=== PATIENT | female | born 2000 | race Caucasian/White ===

== ENCOUNTER → 2018-04-17 | Outpatient (CLI) | payer OTHER | END | disposition home or self-care (01) | LOC: C.PAPS 14:14 | PROVIDERS: ATTEND Obstetrics & Gynecology | DX: Z12.4 Encounter for screening for malignant neoplasm of cervix (principal) ==

== ENCOUNTER → 2018-04-17 | Outpatient (CLI) | payer OTHER ==
[2018-04-17 14:35] LABS: BASO % 0.1 %; BASO ABS # 0.01 K/uL (0-0.2); EOS % 1.2 %; EOS ABS # 0.09 K/uL (0-0.5); HEMATOCRIT 32.1 % (37-47); HEMOGLOBIN 10.8 g/dL (12.0-16.0); IG# 0.02 K/uL (0.00-0.02); LYMPH % 25.2 %; LYMPH ABS # 1.82 K/uL (1.2-3.4); MEAN CORPUSCULAR HEMOGLOBIN 28.3 pg (25-34); MEAN CORPUSCULAR HGB CONC 33.6 g/dl (32-36); MEAN PLATELET VOLUME 10.1 fL (7.4-10.4); MONO % 5.4 %; MONO ABS # 0.39 K/uL (0.11-0.59); NEUT % 67.8 %; NEUT ABS # 4.88 K/uL (1.4-6.5); PLATELET COUNT 231 K/uL (130-400); RED CELL DISTRIBUTION WIDTH CV 13.8 % (11.5-14.5); RED CELL DISTRIBUTION WIDTH SD 41.8 fL (36.4-46.3); WHITE BLOOD COUNT 7.21 K/uL (4.8-10.8)
== END | disposition home or self-care (01) ==
LOC: C.LAB1850 12:32
PROVIDERS: ATTEND Obstetrics & Gynecology
DX: Z34.82 Encounter for supervision of other normal pregnancy, second trimester (principal)

== ENCOUNTER 2018-10-07 21:33 | Inpatient (IN) ==
[2018-10-07] MEDS ORDERED: OXYTOCIN 30 UNITS/500 ML BAG IV PRN (21:57)
[2018-10-07] MEDS ORDERED: LACTATED RINGER'S 1,000 ML IV PRN (21:57)
[2018-10-07] MEDS ORDERED: LACTATED RINGER'S 1,000 ML IV SCH (22:00)
--- NOTE | 2018-10-07 22:05 | History & Physical Report ---
Date of Service October 07, 2018 Assessment & Plan (1) 40 weeks gestation of : fetus category one (2) Normal labor: admit, try to get epidural as patient requests. anticipate . fetus category one History of Present Illness Chief Complaint: leaking fluid and labor Primary Care Provider: NO PCP Patient is a 17yowf with iup at 40 3/7 who presents to labor and delivery c/o lof--several clear gushes and contractions. Looks very uncomfortable. +fm. complicated by +CT at nob with treatment and neg delano at 36 weeks. hx of two previous vaginal deliveries labs--O+/ab-/pap nl/ri/rprnr/hepb-/hiv-/Ct+/ GC-/ 16 week gtt nl/ qs neg/28 week gtt 135, nl 2 hr gtt/gbs neg Allergies Allergy/AdvReac Type Severity Reaction Status Date / Time carrot Allergy Unknown RASH Verified 03/30/18 21:37 Home Medications Home Medications Medication Instructions Recorded Confirmed Type ferrous sulfate [Iron (ferrous 10/05/18 History sulfate)] vit-iron fum-folic ac 1 tab PO DAILY 10/05/18 10/05/18 History [ Vitamin] Patient History Medical History Anxiety Depression Social History marital status: Single Feels Safe at Home: Yes Smoking Status: Never smoker Do You Dip or Chew Tobacco: No Second Hand Exposure: Yes Tobacco Cessation Education Requested by Patient: No Hx Alcohol Use: No Hx Substance Use: No Preferred Language: Malay OB History g1--09/13, , 7#, no issues g2--05/16, , 6#, no issues INFECTION PREVENTION SPECIALIST History no history of abnl pap, nstd. Review of Systems All systems reviewed & are unremarkable except as noted in HPI & below Physical Exam 2 Vital Signs (Past 24 Hours): Last Vital Signs Temp 36.8 C 10/07/18 21:40 Pulse 88 10/07/18 21:45 Resp 18 10/07/18 21:40 BP 140/78 10/07/18 21:45 Constitutional: WD/WN, vitals as above Gastrointestinal (Abdomen): soft, gravid, nt Genitourinary: cx--6-7/100/-2, bulging bag ceph toco--q1min efm--130s wtih mod variability, accels present, no decels
[2018-10-07] MEDS ORDERED: BUPIVACAINE 0.25% 30 ML VIAL ONE (22:13)
[2018-10-07] MEDS ORDERED: ePHEDrine sulfate 50 MG/ML AMP ONE (22:13)
[2018-10-07] MEDS ORDERED: fentaNYL 2MCG/ML ROPIV 1.25MG/ML 100 ML BAG EPI ONE (22:14)
[2018-10-07] MEDS ORDERED: fentaNYL citrate 100 MCG/2 ML VIAL ONE (22:14)
[2018-10-07 22:16] LABS: Hematocrit (blood only) 31.8 % (37-47); Mean Platelet Volume 9.8 fL (7.4-10.4); Platelet Count 211 K/uL (130-400); RDW Coefficient of Variation 15.7 % (11.5-14.5); Red Blood Count 4.24 M/uL (4.2-5.4); White Blood Count 11.06 K/uL (4.8-10.8)
--- NOTE | 2018-10-07 22:16 | Anesthesiology Consultation ---
Date of Service October 07, 2018 Assessment & Plan (1) Encounter for pre-operative examination: Chart Review Chart Review: Patient NOT seen in Pre Admission Testing and Acceptable Risk for Labor Epidural Consults Requested none ASA ASA2 Proposed Anesthesia Anesthesia Type: Labor Epidural Risk / Benefits Reviewed With: PT / POA / Parent / Guardian, Accepts Plan and Informed Consent Obtained NPO Date Last Intake of Fluids: 10/07/18 Time Last Intake of Fluids: 22:15 Date Last Intake of Solids: 10/07/18 Time Last Intake of Solids: 09:00 History Height/Weight Height: 5 ft 4 in Weight: 67.585 kg Allergies Allergy/AdvReac Type Severity Reaction Status Date / Time carrot Allergy Unknown RASH Verified 03/30/18 21:37 Medications Home Medications Medication Instructions Recorded Confirmed Last Taken ferrous sulfate [Iron (ferrous 10/05/18 Unknown sulfate)] vit-iron fum-folic ac 1 tab PO DAILY 10/05/18 10/05/18 Unknown [ Vitamin] Past Medical History Medical History Anxiety Depression Past Anesthesia History No Family Hx of Anesthesia Complications Motion Sickness Screening History of Motion Sickness: No Social History Smoking Status: Never smoker Do You Dip or Chew Tobacco: No Hx Alcohol Use: No Hx Substance Use: No substance use type: does not use Exercise / Class Metabolic Activity II 4-5 Yardwork/Stairs/Walk up hill Negative for chest pain or shortness of breath. Patient denies active symptoms of GERD. Physical Exam Vital Signs Last Vital Signs Temp 36.8 C 10/07/18 21:40 Pulse 88 10/07/18 21:45 Resp 18 10/07/18 21:40 BP 140/78 10/07/18 21:45 Constitutional not obese ENMT Mouth: no TMJ abnormality and oral opening not small Thyromental Distance: > or= 3.5 Finger Breadths Mallampati Class: II Neck normal visual inspection; neck extension not limited Respiratory normal respiratory effort Auscultation: lungs clear to auscultation bilaterally Cardiovascular Rate/Rhythm: regular rate and regular rhythm Heart Sounds: no murmur Psychiatric A+Ox3, euthymic affect Orientation: alert and oriented x 3
[2018-10-07 22:17] LABS: Mean Corpuscular Hgb Conc 31.4 g/dL (32-36)
[2018-10-07] MEDS ORDERED: OXYTOCIN 30 UNITS/500ML NSS ONE (22:23)
--- NOTE | 2018-10-07 22:49 | Procedure Note ---
Procedure Note Date of Service October 07, [address] epidural for patient who had attempted to push, but was now requesting epidural placement. Consent obtained. Patient placed in lateral position with left side down. Site prepped with betadine and draped. L3 interspace palpated and 3 cc of 1% lidocaine infiltrated at planned insertion site. Tuohey inserted and advanced with KAROLINA syringe filled with saline. Tuohey inserted to about 3cm before patient began experiencing intense urge to push with some degree of involuntary pushing. Decision made to abort procedure and tuohey removed. Patient placed supine and shortly after delivered healthy female . Anupama Hernandez MD, PhD Anesthesiology
[2018-10-08] MEDS ORDERED: HYDROCORTISONE ACETATE 25 MG SUPP PR PRN (01:35)
[2018-10-08] MEDS ORDERED: DIPHTHERIA/TETANUS/PERTUSSIS 0.5 ML SYR/VIAL IM ONE (01:35)
[2018-10-08] MEDS ORDERED: ACETAMINOPHEN 325 MG TAB PO PRN (01:35)
[2018-10-08] MEDS ORDERED: BENZOCAINE 20% AER SPR 82.5 GM CAN EXT PRN (01:35)
[2018-10-08] MEDS ORDERED: OXYTOCIN 30 UNITS/500 ML BAG IV PRN (01:35)
[2018-10-08] MEDS ORDERED: IBUPROFEN 600 MG TAB PO PRN (01:35)
[2018-10-08] MEDS ORDERED: SUPERCREAM 0.870% 15 GM JAR EXT PRN (01:35)
[2018-10-08] MEDS ORDERED: OXYCODONE/ACETAMINOPHEN 5mg/325mg TAB PO PRN (01:35)
[2018-10-08] MEDS ORDERED: IBUPROFEN 600 MG TAB PO ONE (01:43)
--- NOTE | 2018-10-08 06:21 | Delivery Summary ---
DATE OF OPERATION: 10/07/2018 PREOPERATIVE DIAGNOSES: 1. Intrauterine at 40 plus weeks. 2. Active labor. POSTOPERATIVE DIAGNOSES: Same. PROCEDURES: 1. Normal spontaneous vaginal delivery. 2. Small first-degree perineal laceration with repair. SURGEON: Alis Monte MD MANAGER HUMAN RESOURCES: No perioperative assistant. ANESTHESIA: Infiltration of lidocaine to the perineum. ESTIMATED BLOOD LOSS: 200 mL. DESCRIPTION OF PROCEDURE: The patient presented to Labor and Delivery in active labor. She was 7-8 cm with a bulging bag. Patient decided that she just wanted to proceed with amniotomy and delivery, so that was done for clear fluid. The fetus settled against the cervix and was 8 cm dilated for 3 or 4 contractions. So we tried to see if we could get an epidural placed. Unfortunately during the course of the epidural, the patient noted the need to push. She was checked and found to be +2 station and pushed over 1 contraction to deliver a viable female infant in MARY presentation. The nose and mouth were bulb suctioned. The rest of the was then delivered without difficulty. The infant was placed on the maternal abdomen for drying and attention where the cord was clamped and cut. Cord blood and segment were obtained. Placenta was delivered spontaneously intact with a 3-vessel cord. Cervix, sulci, and rectum were examined and found to be intact. A small perineal first-degree laceration was repaired with a konwzv-kr-qkzco suture of 0 Vicryl after infiltrating with 1% lidocaine without epi. Hemostasis was obtained with dilute Pitocin and IM Pitocin and fundal massage. Estimated blood loss 200 mL. Apgars 8 and 9. Mother and baby doing well at the end of the delivery. I attest to the content of the Intraoperative Record and any orders documented therein. Any exception s are noted below.
[2018-10-08 08:00] LABS: Hematocrit (blood only) 27.5 % (37-47); Hemoglobin 8.7 g/dL (12.0-16.0); Mean Corpuscular Hgb Conc 31.6 g/dL (32-36); Mean Corpuscular Volume 75.3 fL (80-100); Mean Platelet Volume 9.9 fL (7.4-10.4); Platelet Count 174 K/uL (130-400); RDW Coefficient of Variation 15.6 % (11.5-14.5); RDW Standard Deviation 43.2 fL (36.4-46.3); Red Blood Count 3.65 M/uL (4.2-5.4); White Blood Count 13.32 K/uL (4.8-10.8)
--- NOTE | 2018-10-08 08:25 | Obstetrical Progress Note ---
Date of Service <Emory Telles DO - Last Filed: 10/08/18 08:25> October 08, 2018 Assessment & Plan <Emory Telles DO - Last Filed: 10/08/18 08:25> (1) Spontaneous vaginal delivery: 17 y/o , O+, Ab-, GBS-, @ 40 weeks - continue routine post- care - PPD #1 Day #:: 1 Subjective <Emory Telles DO - Last Filed: 10/08/18 08:25> Ambulation: ambulating normally Voiding: no voiding problems Passing Gas:: Yes Diet Tolerance:: regular diet Lochia:: Small Feeding Type:: bottle feeding Current Pain Level(1-10): 0 Rafia states she is doing well this morning. No fevers, chills, chest pain, shortness of breath, nausea, vomiting. Physical Exam <Emory Telles DO - Last Filed: 10/08/18 08:25> Vital Signs (Past 24 Hours) Last Vital Signs Temp 36.8 C 10/08/18 03:25 Pulse 85 10/08/18 03:25 Resp 16 10/08/18 03:25 BP 111/57 L 10/08/18 03:25 Pulse Ox 97 10/08/18 03:25 Constitutional WD/WN, vitals as above Respiratory normal respiratory effort, lungs clear to auscultation Cardiovascular RRR, no murmur, no edema Gastrointestinal (Abdomen) Percussion/Palpation: abdomen soft; abdomen nontender fundus is firm, non-tender, 2cm below umbilicus Neurologic moves all extremities and awake Psychiatric A+Ox3, euthymic affect Results & Data <DO Abdulaziz Madrid Last Filed: 10/08/18 08:25> Laboratory Results Laboratory Results - last 24 hr 10/07/18 10/08/18 22:07 07:29 WBC 11.06 H 13.32 H RBC 4.24 3.65 L Hgb 10.0 L 8.7 L Hct 31.8 L 27.5 L MCV 75.0 L 75.3 L MCH 23.6 L 23.8 L MCHC 31.4 L 31.6 L RDW Std Deviation 43.0 43.2 RDW Coeff of Yaniv 15.7 H 15.6 H Plt Count 211 174 MPV 9.8 9.9 <Alis Monte MD, FACOG - Last Filed: 10/08/18 08:30> Co-Signing Physician Notes Resident Physician Supervision Note: I interviewed and examined the patient. Discussed with Dr. Telles and agree with findings and plan as documented in the note. Any exceptions or clarifications are listed here: Doing well. Routine care. Documented By: Alis Monte MD, FACOG
[2018-10-08] MEDS: PRENATAL VITAMIN 1 TAB PO SCH (09:26)
[2018-10-08] MEDS: DOCUSATE SODIUM 100 MG CAP PO SCH ×2 (09:26→19:46)
--- NOTE | 2018-10-09 06:52 | Obstetrical Progress Note ---
Date of Service <Emory DO Elfego - Last Filed: 10/09/18 07:04> October 09, 2018 Assessment & Plan <Emory DO Elfego - Last Filed: 10/09/18 07:04> (1) Spontaneous vaginal delivery: 17 y/o , O+, Ab-, GBS-, @ 40 weeks - continue routine post- care until discharge home today - discharge instructions reviewed at bedside - PPD # Subjective <Emory Telles DO - Last Filed: 10/09/18 07:04> Ambulation: ambulating normally Voiding: no voiding problems Passing Gas:: Yes Diet Tolerance:: regular diet Lochia:: Small Feeding Type:: bottle feeding Current Pain Level(1-10): 0 Rafia is doing well this morning. No fever, chills, chest pain, shortness of breath, headache. Physical Exam <Emory Telles DO - Last Filed: 10/09/18 07:04> Vital Signs (Past 24 Hours) Last Vital Signs Temp 36.5 C 10/08/18 23:33 Pulse 73 10/08/18 23:33 Resp 16 10/08/18 23:33 BP 103/54 L 10/08/18 23:33 Pulse Ox 97 10/08/18 23:33 Constitutional WD/WN, vitals as above Respiratory normal respiratory effort, lungs clear to auscultation Cardiovascular RRR, no murmur, no edema Gastrointestinal (Abdomen) Percussion/Palpation: abdomen soft; abdomen nontender fundus is firm, non-tender, 3cm below umbilicus Neurologic moves all extremities and awake Psychiatric A+Ox3, euthymic affect Results & Data <DO Abdulaziz Madrid Last Filed: 10/09/18 07:04> Laboratory Results Laboratory Results - last 24 hr 10/08/18 07:29 WBC 13.32 H RBC 3.65 L Hgb 8.7 L Hct 27.5 L MCV 75.3 L MCH 23.8 L MCHC 31.6 L RDW Std Deviation 43.2 RDW Coeff of Yaniv 15.6 H Plt Count 174 MPV 9.9 Medications Administered Docusate Sodium (Colace) 100 mg PO BID LILLIAM Stop: 11/07/18 08:59 Last Admin: 10/08/18 19:46 Dose: 100 mg Admin: 10/08/18 09:26 Dose: 100 mg Ibuprofen (Motrin) 600 mg PO Q4H PRN PRN Reason: Pain/MATSON/Cramping/Fever Stop: 11/07/18 01:34 Last Admin: 10/08/18 15:54 Dose: 600 mg Prenat Multivit/Barrel Raiser Helper/Iron/Folic Ac ( Vitamin) 1 tab PO QAM LILLIAM Stop: 11/07/18 08:59 Last Admin: 10/08/18 09:26 Dose: 1 tab <Ingrid Salomon MD, FACOG - Last Filed: 10/09/18 08:37> Co-Signing Physician Notes Resident Physician Supervision Note: I interviewed and examined the patient. Discussed with Dr. Emory Telles and agree with findings and plan as documented in the note. Any exceptions or clarifications are listed here: [None] Documented By: Ingrid Salomon MD, FACOG
[2018-10-09] MEDS: DOCUSATE SODIUM 100 MG CAP PO SCH (08:19)
[2018-10-09] MEDS: PRENATAL VITAMIN 1 TAB PO SCH (08:19)
[2018-10-09 08:30] LABS: Hematocrit (blood only) 30.9 % (37-47); Hemoglobin 9.7 g/dL (12.0-16.0)
== END 2018-10-09 13:25 | disposition home or self-care (01) | DRG 807 ==
LOC: OPB 21:33 → 4S1 21:34 → 4N 10-08 02:00

== ENCOUNTER 2021-11-14 07:35 | Inpatient (IN) ==
[2021-11-14] MEDS ORDERED: OXYTOCIN 30 UNITS/500 ML BAG IV PRN ×3 (07:48→13:18)
[2021-11-14 08:16] LABS: Hematocrit (blood only) 29.5 % (37-47); Hemoglobin 8.8 g/dL (12.0-16.0); Mean Corpuscular Hemoglobin 22.6 pg (25-34); Mean Corpuscular Hgb Conc 29.8 g/dL (32-36); Mean Corpuscular Volume 75.6 fL (80-100); Mean Platelet Volume 9.7 fL (7.4-10.4); Platelet Count 201 K/uL (130-400); RDW Coefficient of Variation 16.6 % (11.5-14.5); RDW Standard Deviation 45.8 fL (36.4-46.3); White Blood Count 9.39 K/uL (4.8-10.8)
[2021-11-14] MEDS: LACTATED RINGER'S 1,000 ML IV PRN ×2 (08:20→11:30)
--- NOTE | 2021-11-14 09:32 | History & Physical Report ---
Date of Service November 14, 2021 Assessment & Plan (1) Encounter for induction of labor: (2) Severe anemia: Plan: admit, iv, labs. start pit. will arom, epidural on demand. fhts categ 1. Admission and Anticipated Discharge Date Admission Date: November 14, 2021 History of Present Illness Chief Complaint: planned induction Primary Care Provider: MARYAM PCP 20yo at 40+wks lacho presents to L&D for planned induction for postdates. She had vang placed yesterday for cervical ripening. Back today and balloon has not fallen out. She denies ctx, rom. Some vb after vang yesterday. +FM. PNC 1. severe anemia--had hematology consult in oct 01, ? if did the iv iron and sq vit b12 PNL rh pos, ri, gbs neg OBH: x 3 GYNH: nl paps no stds Allergies Allergy/AdvReac Type Severity Reaction Status Date / Time carrot Allergy Severe Throat Verified 11/13/21 19:10 sweeling Home Medications Medication Instructions Recorded Confirmed Type acetaminophen 500 mg tablet 1,000 mg PO Q6H PRN 05/21/21 11/14/21 History (Tylenol Extra Strength) ferrous sulfate 325 mg (65 mg 325 mg PO DAILY 08/12/21 11/14/21 History iron) tablet (iron) prenat.vits,felicia,[id number] 1 tab PO DAILY 08/12/21 11/14/21 History Patient History Medical History (Updated 11/14/21 @ 09:59 by Alejandra Chen MD, FACOG) Anxiety COVID-19 Positive test- 10/20/21 Depression labor in third trimester Scabies 06/2021-treated Surgical History No history of previous surgery Family History Other No known health problems Social History Smoking Status: Never smoker Tobacco Type: Cigarettes Second Hand Exposure: No; Hx Alcohol Use: No Hx Substance Use: No Preferred Language: Burundian Communication Ability: Effective Flat Surfacer Required: No Beliefs That Will Affect Care: None marital status: Single marital status details: Med (25) [phone] Current Living Situation: Family Current Living Situation Comment: lives with Mother, step dad, sister, neice, and pts children current occupational status: unemployed Feels Safe at Home: Yes Assistive Devices: Glasses Review of Systems as per Subjective / HPI Physical Exam Constitutional: WD/WN, vitals as above Respiratory: normal respiratory effort, lungs clear to auscultation Cardiovascular: Rate/Rhythm: regular rate and regular rhythm Gastrointestinal (Abdomen): soft gravid nt Musculoskeletal: no edema nontender calves Neurologic: grossly normal Psychiatric: A+Ox3, euthymic affect Genitourinary: OB Exam Abdomen: + vertex and + estimated weight (7-8#) Manual OB Exam: + cervical dilation 4 cm, + cervical effacement (75%) and + station -2 OB Exam Monitor Tracing: + external FHT monitor used, + external uterine monitor used (no regular ctx), + category I and + normal FHT variability vang balloon in vagina. deflated and removed. Results & Data ([facility]) Vital Signs (Past 12 Hours) Vital Signs Temp Pulse Resp BP 11/14/21 09:04 84 112/71 11/14/21 07:58 98.1 F 18 11/14/21 07:44 98 H 117/72 Code Status & VTE Plan VTE Prophylaxis Plan VTE Prophylaxis will be ordered: Yes Coding Level of Care Code None Diagnoses Encounter for induction of labor Z34.90 Severe anemia D64.9
--- NOTE | 2021-11-14 10:57 | Medical Student H&P ---
Date of Service November 14, 2021 Assessment & Plan (1) Encounter for induction of labor: (2) Severe anemia: Plan: Rafia is a 20F with IUP at 40 0/7 weeks based on first trimester ultrasound who presents to labor and delivery for induction of labor for postda darlyn. Admit. Will establish IV access. Start Pitocin 1 mU/min, +2mU/min q30min. Plan for AROM. Epidural on demand. Admission and Anticipated Discharge Date Admission Date: November 14, 2021 History of Present Illness Chief Complaint: Induction Primary Care Provider: NO PCP Rafia is a 20F with IUP at 40 0/7 weeks based on first trimester ultrasound who presents to labor and delivery for induction of labor for postdates. She had a vang placed yesterday for cervical ripening. She has felt movement. No contractions or leakage of fluid. She had a moderate amount of vaginal bleeding after the vang placement yesterday. She has severe anemia but was not able to get IV iron treatment. Labs GBS Neg 10/17/21 Blood Type O Positive 03/27/21 Antibody Screen NEGATIVE 03/27/21 Hemoglobin 12.5 g/dL (12.0-16.0) 03/27/21 Hematocrit 36.2 % (37-47) L 03/27/21 F Mean Corpuscular Volume 83.6 fL (80-100) 03/27/21 Platelet Count 264 K/uL (130-400) 03/27/21 Rubella IgG Antibody Immune (Immune) 03/27/21 Rapid Plasma Reagin Nonreactive (Nonreactive) 03/27/21 Hepatitis B Surface Antigen Neg (Neg) 03/27/21 HIV (1&2) Ab and P24 Ag, 4th Gener Neg (Neg) 03/27/21 Glucose 1 Hour 50 gm Load 135 mg/dl (70-130) H 07/10/18 Chlamydia trachomatis RNA NOT DETECTED (NOT DETECTED) 03/27/21 Neisseria gonorrhoeae RNA NOT DETECTED (NOT DETECTED) 03/27/21 Thyroid Stimulating Hormone (TSH) 1.920 uIu/ml (0.300-4.500) 03/30/18 Alpha Fetoprotein Triple Screen SEE NOTE 04/17/18 Alpha Fetoprotein 28.8 NG/ML 04/17/18 Allergies Allergy/AdvReac Type Severity Reaction Status Date / Time carrot Allergy Severe Throat Verified 11/13/21 19:10 sweeling Home Medications Medication Instructions Recorded Confirmed Type acetaminophen 500 mg tablet 1,000 mg PO Q6H PRN 05/21/21 11/14/21 History (Tylenol Extra Strength) ferrous sulfate 325 mg (65 mg 325 mg PO DAILY 08/12/21 11/14/21 History iron) tablet (iron) prenat.vits,felicia,[id number] 1 tab PO DAILY 08/12/21 11/14/21 History Patient History Medical History Anxiety COVID-19 Positive test- 10/20/21 Depression labor in third trimester Scabies 06/2021-treated Surgical History No history of previous surgery Family History (Updated 11/14/21 @ 11:17 by Zeinab Rivera) Grandmother (Maternal) Colorectal cancer, Onset Age: 33 Social History Smoking Status: Never smoker Tobacco Type: Cigarettes Second Hand Exposure: No; Hx Alcohol Use: No Hx Substance Use: No Preferred Language: Swedish Communication Ability: Effective Microbiology Supervisor Required: No Beliefs That Will Affect Care: None marital status: Single marital status details: Med (25) [phone] Current Living Situation: Family Current Living Situation Comment: lives with Mother, step dad, sister, neice, and pts children current occupational status: unemployed Feels Safe at Home: Yes Assistive Devices: Glasses OB History Del. Date GA wks Lbr Lgth wt Sex Type del Anes Place Del Prov ? Comment 09/19/15 41 6lb 0oz. M Epid ural [facility] No 05/24/17 38 7lb 0oz. F Epid ural Other [place] No 10/07/17 8lb 8oz. F None [facility] Dr Lali Monte No MAXILLOFACIAL PATHOLOGY History LMP: 01/31/21 Menstrual History Flow: heavy Menstrual regularity: regular Monthly: Yes Age at menarche: 13 On control pills at conception: No History of Chlamydia in 2018. No history of abnormal pap smear, uncertain of the date of her last. No MAXILLOFACIAL PATHOLOGY surgeries Review of Systems no fever and no chills no dyspnea no chest pain no dysuria, no urinary frequency and no urinary urgency no dizziness, no syncope and no headache(s) no easy bleeding Physical Exam Constitutional: WD/WN, vitals as above Respiratory: normal respiratory effort, lungs clear to auscultation Cardiovascular: RRR, no murmur, no edema Gastrointestinal (Abdomen): Percussion/Palpation: abdomen soft; abdomen nontender and no guarding Gravid Psychiatric: A+Ox3, euthymic affect Lymphatic: no cervical or axillary lymphadenopathy Monitoring External Monitor FHT Cat I. Results & Data ([facility]) Vital Signs (Past 12 Hours) Vital Signs Temp Pulse Resp BP 11/14/21 10:36 18 11/14/21 10:20 18 11/14/21 10:04 18 11/14/21 10:03 79 120/58 L 11/14/21 09:50 18 11/14/21 09:04 84 112/71 11/14/21 07:58 36.7 C 18 11/14/21 07:44 98 H 117/72 Laboratory Results 11/14/21 11/14/21 Range/Units 08:06 08:06 WBC 9.39 (4.8-10.8) K/uL RBC 3.90 L (4.2-5.4) M/uL Hgb 8.8 L (12.0-16.0) g/dL Hct 29.5 L (37-47) % MCV 75.6 L (80-100) fL MCH 22.6 L (25-34) pg MCHC 29.8 L (32-36) g/dL RDW Std Deviation 45.8 (36.4-46.3) fL RDW Coeff of Yaniv 16.6 H (11.5-14.5) % Plt Count 201 (130-400) K/uL MPV 9.7 (7.4-10.4) fL Blood Type O Positive Antibody Screen NEGATIVE Code Status & VTE Plan VTE Prophylaxis Plan VTE Prophylaxis will be ordered: Yes
[2021-11-14] MEDS ORDERED: ePHEDrine sulfate 50 MG/ML AMP ONE (11:03)
[2021-11-14] MEDS ORDERED: BUPIVACAINE 0.25% 30 ML VIAL ONE (11:03)
[2021-11-14] MEDS ORDERED: SODIUM CHLORIDE 0.9% INJ 10 ML VIAL ONE (11:03)
[2021-11-14] MEDS ORDERED: fentaNYL citrate 100 MCG/2 ML VIAL ONE (11:04)
[2021-11-14] MEDS ORDERED: fentaNYL 2MCG/ML ROPIVACAINE 1.25MG/ML 100 ML BAG EPI ONE (11:04)
[2021-11-14] MEDS ORDERED: NALOXONE HCL 0.4 MG/1 ML VIAL/CARP IV PRN (11:14)
[2021-11-14] MEDS ORDERED: NALOXONE HCL 1 MG in SODIUM CHLORIDE 0.9% 1000ML 1,000 ML IV PRN (11:14)
[2021-11-14] MEDS ORDERED: ePHEDrine sulfate 50 MG/ML AMP IV PRN (11:14)
[2021-11-14] MEDS ORDERED: ONDANSETRON INJ 2 MG/ML 2 ML VIAL IV PRN (11:14)
[2021-11-14] MEDS ORDERED: diphenhydrAMINE 50 MG/ML VIAL IV PRN (11:14)
[2021-11-14] MEDS ORDERED: NALBUPHINE HCL INJ 10 MG/ML AMP IV PRN (11:14)
[2021-11-14] MEDS ORDERED: fentaNYL 2MCG/ML ROPIVACAINE 1.25MG/ML 100 ML BAG EPI PRN (11:14)
--- NOTE | 2021-11-14 11:18 | Anesthesiology Consultation ---
Date of Service November 14, 2021 Assessment & Plan (1) Encounter for pre-operative examination: Chart Review Chart Review: Acceptable Risk for Labor Epidural Consults Requested none ASA ASA2 Proposed Anesthesia Anesthesia Type: Labor Epidural Risk / Benefits Reviewed With: PT / POA / Parent / Guardian, Accepts Plan and Informed Consent Obtained History Height/Weight Height: 5 ft 4 in Weight: 66.678 kg Allergies Allergy/AdvReac Type Severity Reaction Status Date / Time carrot Allergy Severe Throat Verified 11/13/21 19:10 sweeling Medications Home Medications Medication Instructions Recorded Confirmed Last Taken acetaminophen 500 mg tablet 1,000 mg PO Q6H PRN 05/21/21 11/14/21 08/12/21 (Tylenol Extra Strength) ferrous sulfate 325 mg (65 mg 325 mg PO DAILY 08/12/21 11/14/21 11/13/21 19:00 iron) tablet (iron) prenat.vits,felicia,oeh-qwxq-[id number] 1 tab PO DAILY 08/12/21 11/14/21 11/13/21 08:00 Active Medications Generic Name Dose Route Start Last Admin Trade Name Freq PRN Reason Stop Dose Admin Oxytocin 30 units in 500 mls @ 7 mls/hr 11/14/21 07:48 11/14/21 10:36 Pitocin IV 11/16/21 07:47 0.42 units/hr .Q24H PRN 7 mls/hr Labor Induction/Augmentation Titration Protocol 0.42 UNITS/HR Lactated Ringer's 1,000 mls @ 125 mls/hr 11/14/21 07:48 11/14/21 11:00 Lr IV 11/16/21 07:47 999 mls/hr .Q8H PRN Infusion L&D Protocol Protocol Past Medical History Medical History Anxiety COVID-19 Positive test- 10/20/21 Depression labor in third trimester Scabies 06/2021-treated Exercise / Class Metabolic Activity II 4-5 Yardwork/Stairs/Walk up hill Past Family History Family History Other No known health problems Past Surgical History Surgical History No history of previous surgery Past Anesthesia History No Hx of Anesthesia Complications and No Family Hx of Anesthesia Complications History of PONV No Hx of PONV and No Hx of Motion Sickness Social History Smoking Status: Never smoker tobacco type: cigarettes Hx Alcohol Use: No Hx Substance Use: No substance use type: does not use Physical Exam Vital Signs Last Vital Signs Temp 98.1 F 11/14/21 07:58 Pulse 79 11/14/21 10:03 Resp 18 11/14/21 10:36 BP 120/58 L 11/14/21 10:03 ENMT Mouth: no dentition abnormality Thyromental Distance: > or= 3.5 Finger Breadths Mallampati Class: II Neck normal visual inspection Respiratory normal respiratory effort Auscultation: lungs clear to auscultation bilaterally Cardiovascular Rate/Rhythm: regular rate and regular rhythm Testing Laboratory Results 11/14/21 08:06 Blood Type O Positive 11/14/21 08:06 Antibody Screen NEGATIVE 11/14/21 08:06
--- NOTE | 2021-11-14 11:54 | Labor Progress Brief Note ---
Date of Service November 14, 2021 Subjective asked to check pt due to no pain relief after epidural placed. Assessment & Plan (1) Encounter for induction of labor: Plan: anesth here, no signficant progress, they will try to manage her pain, plan arom when comfortable. fhts categ 1. Admission and Anticipated Discharge Date Admission Date: November 14, 2021 Physical Exam Constitutional: WD/WN, vitals as above Genitourinary: Manual OB Exam: + cervical dilation (4-5), + cervical effacement 80% and + station -2 OB Exam Monitor Tracing: + external FHT monitor used, + external uterine monitor used (q2-3 pit at 7), + category I and + normal FHT variability [facility] & [facility]) Vital Signs (Past 12 Hours) Vital Signs Temp Pulse Resp BP Pulse Ox 11/14/21 11:48 93 H 105/58 L 11/14/21 11:47 81 100 11/14/21 11:46 80 108/63 11/14/21 11:43 108 H 109/63 11/14/21 11:42 92 H 100 11/14/21 11:39 101 H 118/62 11/14/21 11:38 97.9 F 20 11/14/21 11:37 107 H 106/56 L 100 11/14/21 11:33 98 H 104/73 11/14/21 11:32 82 100 11/14/21 11:31 83 117/68 11/14/21 11:27 84 134/68 100 11/14/21 11:22 102 H 99 11/14/21 11:19 91 H 130/71 11/14/21 11:17 99 H 100 11/14/21 10:36 18 11/14/21 10:20 18 11/14/21 10:04 18 11/14/21 10:03 79 120/58 L 11/14/21 09:50 18 11/14/21 09:04 84 112/71 11/14/21 07:58 98.1 F 18 11/14/21 07:44 98 H 117/72 Coding Level of Care Code None Diagnoses Encounter for induction of labor Z34.90
--- NOTE | 2021-11-14 13:10 | Anesthesia Procedure Note ---
Date of Service November 14, 2021 Anesthesia Post Epidural Note Vital Signs Vital Signs: Temp Pulse Resp BP Pulse Ox 97.9 F 77 20 113/67 100 11/14/21 11:38 11/14/21 12:57 11/14/21 11:38 11/14/21 12:57 11/14/21 12:37 Pain Intensity Abdomen: Pain Intensity: 8 Notes Mental Status: alert / awake / arousable and participated in evaluation Nausea / Vomiting: adequately controlled Pain: adequately controlled Airway Patency, RR, SpO2: stable & adequate BP & HR: stable & adequate Hydration State: stable & adequate Neuraxial Anesthesia: was administered and sensory block is resolving Anesthetic Complications: no major complications apparent and Pt Satisfied with anesthetic care Epidural: Removed without complications and With tip intact
--- NOTE | 2021-11-14 13:11 | Delivery Summary ---
Vaginal Delivery Summary Date of Service November 14, 2021 Vaginal Delivery Summary The patient dilated to complete and pushed to deliver a viable female Apgars 9 and 9 via over intact perineum. Mouth and nose bulb suctioned at perineum. Shoulders and body delivered with ease. was vigorous and crying at . Cord clamped at 30 seconds of life and to maternal abdomen where the cord was then doubly clamped and cut. Placenta delivered spontaneously and intact, three-vessel cord. Hemostasis achieved with dilute pitocin and uterine massage and drainage of the bladder for approximately 75cc under sterile conditions. Cervix and sulci intact. EBL 300 cc. Mother and baby stable in recovery. [facility] Vaginal Delivery Charge Delivery Type Details:
[2021-11-14] MEDS ORDERED: IBUPROFEN 600 MG TAB PO PRN (13:18)
[2021-11-14] MEDS ORDERED: DIPHTHERIA/TETANUS/PERTUSSIS 0.5 ML SYR/VIAL IM ONE (13:18)
[2021-11-14] MEDS ORDERED: HYDROCORTISONE ACETATE 25 MG SUPP PR PRN (13:18)
[2021-11-14] MEDS ORDERED: BENZOCAINE 20% AER SPR 82.5 GM CAN EXT PRN (13:18)
[2021-11-14] MEDS ORDERED: ACETAMINOPHEN 325 MG TAB PO PRN (13:18)
[2021-11-14] MEDS ORDERED: oxyCODONE/ACETAMINOPHEN 5mg/325mg TAB PO PRN (13:18)
[2021-11-14] MEDS ORDERED: OXYTOCIN 20 UNITS in LACTATED RINGER'S 1,000 ML IV SCH (13:30)
[2021-11-14] MEDS: DOCUSATE SODIUM 100 MG CAP PO SCH (20:59)
--- NOTE | 2021-11-15 06:44 | Obstetrical Progress Note ---
Date of Service November 15, 2021 Assessment & Plan (1) Encounter for care and examination after delivery: stable, routine care. f/u 6wks pp check. instructions reviewed. dc home later today. Day #:: 1 Subjective Ambulation: ambulating normally Voiding: no voiding problems Diet Tolerance:: regular diet Lochia:: Small Feeding Type:: breast feeding denies pain issues. bottle feeding too. ready to go home. Physical Exam Constitutional WD/WN, vitals as above Respiratory normal respiratory effort, lungs clear to auscultation Cardiovascular Rate/Rhythm: regular rate and regular rhythm Gastrointestinal (Abdomen) Inspection/Auscultation: abdomen normal to inspection Percussion/Palpation: abdomen soft Fundus firm 2cm down Musculoskeletal nt calves no edema Neurologic grossly normal Psychiatric A+Ox3, euthymic affect Results & Data ([facility]) Vital Signs (Past 12 Hours) Vital Signs Temp Pulse Resp BP Pulse Ox 11/15/21 03:40 97.7 F 81 17 107/68 97 11/14/21 23:20 98.4 F 88 16 108/71 98 11/14/21 19:40 98.4 F 76 18 105/63
[2021-11-15 07:34] LABS: Hematocrit (blood only) 26.7 % (37-47); Hemoglobin 8.2 g/dL (12.0-16.0)
[2021-11-15] MEDS ORDERED: PRENATAL VITAMIN 1 TAB PO SCH (08:00)
[2021-11-15] MEDS: DOCUSATE SODIUM 100 MG CAP PO SCH (08:21)
== END 2021-11-15 13:52 | disposition home or self-care (01) | DRG 807 ==
LOC: 4S1 07:35 → 4S2 15:24